=== PATIENT | female | born 1965 | race Caucasian/White ===

== ENCOUNTER 2019-04-24 08:13 | Emergency (ER) | payer OTHER ==
[2019-04-24 08:20] VITALS: BMI 30.4
[2019-04-24] MEDS ORDERED: ACETAMINOPHEN 325 MG TABLET (FP) PO ONE (09:11)
[2019-04-24] MEDS ORDERED: ACETAMINOPHEN 325 MG TABLET (FP) ONE (09:48)
[2019-04-24 10:02] LABS: BASO % 0.9 % (0-2.0); EOS % 1.5 % (0-4.5); HEMATOCRIT 34.7 % (32.4-45.2); HEMOGLOBIN 11.5 GM/dL (10.7-15.3); LYMPH % 22.8 % (8-40); MCH 27.5 pg (25.7-33.7); MCHC 33.3 g/dl (32.0-36.0); MEAN CELL VOLUME 82.5 fl (80-96); MEAN PLT VOLUME 11.3 fl (7.5-11.1); MONO % 5.7 % (3.8-10.2); NEUT % 69.1 % (42.8-82.8); PLATELET COUNT 163 K/MM3 (134-434); WHITE BLOOD COUNT 7.2 K/mm3 (4.0-10.0)
--- NOTE | 2019-04-24 10:04 | PDOC ---
*Physical Exam - Vital Signs Last Vital Signs Temp Pulse Resp BP Pulse Ox 98.3 F 71 18 111/62 99 04/24/19 08:17 04/24/19 08:17 04/24/19 08:17 04/24/19 08:17 04/24/19 09:19 ED Treatment Course - LABORATORY CBC & Chemistry Diagram: 04/24/19 09:45 04/24/19 09:45 - Medications Given in the ED: ED Medications Discontinued Medications Generic Name Dose Route Start Last Admin Trade Name Gloria PRN Reason Stop Dose Admin Acetaminophen 650 mg 04/24/19 09:11 04/24/19 09:18 Tylenol - PO 04/24/19 09:12 650 mg ONCE ONE Administration Medical Decision Making - Medical Decision Making 04/24/19 09:57 The patient was seen and evaluated in conjunction with NHUNG Venegas under my direct supervision, ancillary studies were reviewed. I independently interviewed and evaluated the patient and I agree with the plan as outlined by NHUNG Venegas.. Pt's labs, sonogram results noted. Pt's left ovary not visualized on US, pt has chronic left lower quadrant pain x 20 years since the of her child. Pt's bleeding has slowed , hgb is 11.5 PA discussed case with OB, pt is stable for dc home with out pt f/u in clinic on 04-27-19. . Pt given dc instructions by NHUNG. 04/24/19 13:56 *DC/Admit/Observation/Transfer Diagnosis at time of Disposition: Abnormal vaginal bleeding - Discharge Dispostion Disposition: HOME Condition at time of disposition: Stable Decision to Admit order: No - Prescriptions Prescriptions: Ibuprofen 600 mg PO TID 3 Days #18 tablet - Referrals Referrals: Franc Sandhu MD [Staff Physician] - Stefany Wade [Primary Care Provider] - - Patient Instructions Additional Instructions: Return for worsening/concerning symptoms including dizziness, chest pain shortness of breath or if you have more than 2 soaked pads in 1 hour Print Language: ENG - Post Discharge Activity Forms/Work/School Notes: Back to Work
[2019-04-24 10:11] LABS: INR 1.05 (0.83-1.09); PROTHROMBIN TIME (PATIENT) 12.4 SEC (9.7-13.0)
--- NOTE | 2019-04-24 10:23 | PDOC ---
History of Present Illness - General Chief Complaint: Vaginal Bleeding Stated Complaint: VAGINAL BLEEDING Time Seen by Provider: 04/24/19 08:53 History Source: Patient Exam Limitations: No Limitations - History of Present Illness Initial Comments: 04/24/19 10:13 53 yo F w/ no sig PMHx comes in c/o vaginal bleeding for the past 3 days. She used 2-3 soaked pads a day but says that she is scared to go urinate becuase everytime she sits on the toilet, blood is gushing out. She had mild lightheadedness 2 days ago, none now. ALso c/o L adnexal tenderness and diffuse low back pain and cramping. She is not menopausal yet. LMP 7-8mo ago. Her last period was light, she has never bled so much, no known h/o fibroids. NO other complaints today. Pt is not sexually active (last intercourse was 3 yrs ago). Denies vaginal discharge, no buring/pain on urination. NO fever/chills, no NVD, no change in appetite. Past History - Past Medical History Allergies/Adverse Reactions: Allergies Allergy/AdvReac Type Severity Reaction Status Date / Time No Known Allergies Allergy Verified 04/24/19 08:20 Home Medications: Ambulatory Orders NK [No Known Home Medication] 04/24/19 COPD: No - Reproductive History Is Patient Now?: Yes Cervical CA: No Dysfunctional Uterine Bleeding: No Ectopic : No Endometrial CA: No Polycystic Ovaries: No Therapeutic (s) & number: No Tubal Ligation: No - Suicide/Smoking/Psychosocial Hx Smoking History: Never smoked Review of Systems - Review of Systems Able to Perform ROS?: Yes Constitutional: No: Chills, Fever, Malaise, Night Sweats HEENTM: No: Eye Pain, Recent change in vision, Throat Pain Respiratory: No: Cough, Shortness of Breath Cardiac (ROS): No: Chest Pain, Palpitations, Chest Tightness ABD/GI: Yes: Abdominal cramping. No: Diarrhea, Nausea, Vomiting : No: Dysuria, Hematuria Musculoskeletal: Yes: Back Pain Integumentary: No: Rash Neurological: No: Headache, Numbness, Dizziness Psychiatric: No: Change in Appetite Endocrine: No: Unexplained Weight Loss *Physical Exam - Vital Signs Last Vital Signs Temp Pulse Resp BP Pulse Ox 98.3 F 71 18 111/62 99 04/24/19 08:17 04/24/19 08:17 04/24/19 08:17 04/24/19 08:17 04/24/19 09:19 - Physical Exam General Appearance: Yes: Nourished. No: Apparent Distress HEENT: positive: SHARA, Normal ENT Inspection, Normal Voice. negative: Pale Conjunctivae, Scleral Icterus (R), Scleral Icterus (L) Neck: positive: Supple. negative: Decreased range of motion, Tender midline Respiratory/Chest: positive: Lungs Clear, Normal Breath Sounds. negative: Respiratory Distress, Accessory Muscle Use Cardiovascular: positive: Regular Rhythm, Regular Rate Female Pelvic Exam: positive: adnexal tenderness (L sided), vaginal bleeding ( blood pooling in canal, removed as much as possible.). negative: CMT, discharge Gastrointestinal/Abdominal: positive: Normal Bowel Sounds, Soft. negative: Tender Musculoskeletal: positive: Normal Inspection. negative: CVA Tenderness, Decreased Range of Motion Extremity: positive: Normal Capillary Refill, Normal Inspection, Normal Range of Motion. negative: Tender, Pedal Edema Integumentary: positive: Normal Color, Dry. negative: Jaundice, Rash Neurologic: positive: Fully Oriented, Alert, Normal Mood/Affect ED Treatment Course - LABORATORY CBC & Chemistry Diagram: 04/24/19 09:45 04/24/19 09:45 - ADDITIONAL ORDERS Additional order review: Laboratory Results 04/24/19 09:45 PT with INR 12.40 INR 1.05 04/24/19 09:45 RBC 4.20 MCV 82.5 MCHC 33.3 RDW 14.0 MPV 11.3 H Neutrophils % 69.1 Lymphocytes % 22.8 Monocytes % 5.7 Eosinophils % 1.5 Basophils % 0.9 - RADIOLOGY Radiology Studies Ordered: Category Date Time Status TRANSVAGINAL ULTRASOUND US [US] Stat Ultrasound 04/24/19 09:09 Ordered - Medications Given in the ED: ED Medications Discontinued Medications Generic Name Dose Route Start Last Admin Trade Name Freq PRN Reason Stop Dose Admin Acetaminophen 650 mg 04/24/19 09:11 04/24/19 09:18 Tylenol - PO 04/24/19 09:12 650 mg ONCE ONE Administration Medical Decision Making - Medical Decision Making 04/24/19 10:24 53 yo F (not menopausal yet), w/ irregular vaginal bleeding. (+)lightheadedness yesterday, which resolved. WIll cehck UA, will ,line and lab, doa transvaginal sono, give tylenol for pain and reassess. 04/24/19 12:27 Pt states that the pain is now new, she has had it for 20 years, since she gave to her son, what is new is the bleeding. She feels better now. Sono with abnormal endometrial thickness. Unable to visualize L ovary. Will page [employer] 04/24/19 13:[address] Sandhu, pt can be discharged home with ON[facility] clinic follow up, she can follow up on Friday. Motrin PRN for pain. Return for worsening/concerning symptoms Pt verbalizes understanding and agrees with plan *DC/Admit/Observation/Transfer Diagnosis at time of Disposition: Abnormal vaginal bleeding - Discharge Dispostion Disposition: HOME Condition at time of disposition: Stable - Referrals Referrals: Stefany Wade [Primary Care Provider] - Franc Sandhu MD [Staff Physician] - - Patient Instructions Additional Instructions: Return for worsening/concerning symptoms including dizziness, chest pain shortness of breath or if you have more than 2 soaked pads in 1 hour - Post Discharge Activity
[2019-04-24 10:24] LABS: ALK PHOS 85 U/L (45-117); ANION GAP 8 MMOL/L (8-16); BILIRUBIN,TOTAL 0.3 mg/dL (0.2-1); BLOOD UREA NITROGEN 5.9 mg/dL (7-18); CALCIUM 9.3 mg/dL (8.5-10.1); CHLORIDE 107 mmol/L (98-107); CO2 27 mmol/L (21-32); CREATININE 0.6 mg/dL (0.55-1.3); GLUCOSE,RANDOM 93 mg/dL (74-106); POTASSIUM 3.8 mmol/L (3.5-5.1); SGOT/AST 12 U/L (15-37); SGPT/ALT 22 U/L (13-61); SODIUM 142 mmol/L (136-145); TOT PROT 7.6 g/dl (6.4-8.2)
[2019-04-24 10:30] LABS: HYALINE CASTS 1 /lpf (0-8); PH,URINE 5.5 (5.0-8.0); URINE APPEARANCE CLEAR; URINE BILIRUBIN NEGATIVE (NEGATIVE); URINE COLOR YELLOW; URINE GLUCOSE (UA) NEGATIVE (NEGATIVE); URINE KETONE NEGATIVE (NEGATIVE); URINE LEUK ESTERASE NEGATIVE (NEGATIVE); URINE NITRITE NEGATIVE (NEGATIVE); URINE PROTEIN NEGATIVE (NEGATIVE); URINE RBC 51 /hpf (0-4); URINE UROBILINOGEN 0.2 mg/dL (0.2-1.0); URINE WBC 1 /hpf (0-5)
[2019-04-24 14:39] VITALS: BP 110/74; PULSE 72; TEMP 98.1
== END 2019-04-24 14:39 | disposition home or self-care (01) ==
LOC: JER 08:13
DX: N93.8 Other specified abnormal uterine and vaginal bleeding (principal)
CPT/HCPCS: 36415; 76830-TC; 80053; 81003; 84702; 85025; 85610; 87077; 87086; 99284-25